=== PATIENT | female | born 1990 | race Hispanic/Latino ===

== ENCOUNTER 2017-11-08 08:53 | Emergency (ER) | payer MEDICAID ==
[2017-11-08 09:46] LABS: APPEARANCE,URINE Clear (CLEAR); BILIRUBIN,URINE Negative (NEGATIVE); COLOR,URINE Yellow (YELLOW); GLUCOSE, URINE (UA) Negative (NEGATIVE); KETONES,URINE Negative (NEGATIVE); LEUKOCYTE ESTERASE ,URINE Negative (NEGATIVE); NITRATE,URINE Negative (NEGATIVE); OCCULT BLOOD,URINE Negative (NEGATIVE); PROTEIN,URINE Negative (NEGATIVE)
[2017-11-08 09:52] LABS: HCG,QUAL RESULT NEGATIVE (NEGATIVE)
[2017-11-08] MEDS ORDERED: IBUPROFEN 800 MG TAB ONE (10:10)
[2017-11-08] MEDS ORDERED: SIMETHICONE 80 MG TAB.CHEW ONE (11:46)
== END 2017-11-08 11:55 | disposition home or self-care (01) ==
LOC: EDH 08:53
DX: R10.2 Pelvic and perineal pain (principal); J45.909 Unspecified asthma, uncomplicated
CPT/HCPCS: 76856; 81003; 81025

== ENCOUNTER 2019-07-23 16:54 | Emergency (ER) | payer MEDICAID ==
[2019-07-23 17:31] LABS: BASOPHILS % (AUTO) 0.3 % (0.0-5.0); EOSINOPHILS % (AUTO) 0.3 % (0.0-8.0); HEMATOCRIT 45.8 % (36-48); LYMPHOCYTES % (AUTO) 11.2 % (21.0-51.0); MEAN CORPUSCULAR HEMOGLOBIN 29.4 pg (27.0-33.0); MEAN CORPUSCULAR HGB CONC 33.4 g/dL (32.0-36.0); NEUTROPHILS % (AUTO) 85.2 % (40.0-77.0); PLATELET COUNT (AUTO) 326 K/uL (130-400); RED BLOOD CELL COUNT(AUTO) 5.21 MIL/uL (4.00-5.50); RED CELL DISTRIBUTION WIDTH 13.1 % (11.0-15.5); WHITE BLOOD COUNT (AUTO) 13.3 K/uL (4.8-10.8)
[2019-07-23] MEDS ORDERED: ASPIRIN 325 MG TABLET ONE (17:38)
[2019-07-23 17:50] LABS: CREATININE 0.8 mg/dL (0.5-1.5)
[2019-07-23 17:54] LABS: ALBUMIN 3.5 g/dL (3.5-5.0); BILIRUBIN,TOTAL 0.3 mg/dL (0.2-1.0); TOTAL PROTEIN, SERUM 8.2 g/dL (6.0-8.3)
[2019-07-23 17:56] LABS: INR 0.93 (0.85-1.15); PROTHROMBIN TIME 9.8 SEC (9.6-11.6)
[2019-07-23] MEDS ORDERED: SODIUM CHLORIDE 0.9% 1000ML 1,000 ML IV ONE (18:47)
[2019-07-23 19:03] LABS: APPEARANCE,URINE Clear (CLEAR); BILIRUBIN,URINE Negative (NEGATIVE); COLOR,URINE Yellow (YELLOW); GLUCOSE, URINE (UA) Negative (NEGATIVE); KETONES,URINE Negative (NEGATIVE); LEUKOCYTE ESTERASE ,URINE Large (NEGATIVE); NITRATE,URINE Negative (NEGATIVE); OCCULT BLOOD,URINE Trace (NEGATIVE); PROTEIN,URINE Negative (NEGATIVE); UROBILINOGEN,URINE 0.2 mg/dL (0.2-1.0)
[2019-07-23 19:09] LABS: HCG,QUAL RESULT NEGATIVE (NEGATIVE)
[2019-07-23 19:12] LABS: AMPHET/METH SCREEN,URINE NEGATIVE (NEGATIVE); BARBITURATE SCREEN, URINE NEGATIVE (NEGATIVE); BENZODIAZEPINES SCREEN,URINE NEGATIVE (NEGATIVE); CANNABINOID SCREEN,URINE NEGATIVE (NEGATIVE); COCAINE SCREEN,URINE NEGATIVE (NEGATIVE); OPIATE SCREEN,URINE NEGATIVE (NEGATIVE); PHENCYCLIDINE SCREEN,URINE NEGATIVE (NEGATIVE)
[2019-07-23 19:17] LABS: BACTERIA,URINE Few /HPF (None Seen)
[2019-07-23 19:18] LABS: SQUAMOUS EPITHELIAL CELL,UR Few /HPF (0-2)
[2019-07-23] MEDS ORDERED: CEFTRIAXONE SODIUM 1 GM ONE (19:59)
[2019-07-23] MEDS ORDERED: ACETAMINOPHEN 325 MG TAB ONE (20:14)
== END 2019-07-23 22:42 | disposition home or self-care (01) ==
LOC: EDH 16:54
DX: R00.0 Tachycardia, unspecified (principal); N30.00 Acute cystitis without hematuria; R00.2 Palpitations; K21.9 Gastro-esophageal reflux disease without esophagitis; F41.9 Anxiety disorder, unspecified; Z88.6 Allergy status to analgesic agent
CPT/HCPCS: 36415; 71045; 80053; 80305; 81001; 81025; 82550; 84443; 84484; 85025; 85378; 85610; 85730; 87804 ×2; 93005; 96374; 99285; J0696; J7030

== ENCOUNTER → 2019-09-27 | Outpatient (CLI) | payer OTHER | END | disposition home or self-care (01) | LOC: OIH 13:21 | PROVIDERS: ATTEND Internal Medicine Cardiovascular Disease | DX: Z13.6 Encounter for screening for cardiovascular disorders (principal) | CPT/HCPCS: 75571 ==

== ENCOUNTER → 2019-10-08 | Outpatient (CLI) | payer MEDICAID | END | disposition home or self-care (01) | LOC: SHCH 08:29 | PROVIDERS: ATTEND Internal Medicine Cardiovascular Disease | DX: R00.2 Palpitations (principal) | CPT/HCPCS: 93306; 93356 ==

== ENCOUNTER 2021-03-03 01:20 | Emergency (ER) | payer MEDICAID ==
[~2021-03-03] VITALS: Ht 165.1 cm; Wt 88.9 kg
[2021-03-03 01:41] VITALS: BP 119/67
[2021-03-03 03:27] VITALS: BP 127/86
[2021-03-03 03:50] LABS: HEMATOCRIT 46.8 % (36-48); MEAN CORPUSCULAR HEMOGLOBIN 28.3 pg (27.0-33.0); MEAN CORPUSCULAR HGB CONC 32.7 g/dL (32.0-36.0); MEAN CORPUSCULAR VOLUME 86.7 fL (79-99); PLATELET COUNT (AUTO) 283 K/uL (130-400); RED CELL DISTRIBUTION WIDTH 18.4 % (11.0-15.5); WHITE BLOOD COUNT (AUTO) 10.8 K/uL (4.8-10.8)
[2021-03-03 04:01] LABS: APPEARANCE,URINE Clear (CLEAR); BILIRUBIN,URINE Negative (NEGATIVE); COLOR,URINE Yellow (YELLOW); GLUCOSE, URINE (UA) Negative (NEGATIVE); KETONES,URINE Negative (NEGATIVE); LEUKOCYTE ESTERASE ,URINE Negative (NEGATIVE); NITRATE,URINE Negative (NEGATIVE); OCCULT BLOOD,URINE Negative (NEGATIVE); PH,URINE 6.5 (5.0-8.0); PROTEIN,URINE Negative (NEGATIVE); UROBILINOGEN,URINE 0.2 mg/dL (0.2-1.0)
[2021-03-03 04:03] LABS: HCG,QUAL RESULT NEGATIVE (NEGATIVE)
== END 2021-03-03 04:13 | disposition home or self-care (01) ==
LOC: EDH 02:02
DX: R00.2 Palpitations (principal); R00.0 Tachycardia, unspecified; F41.9 Anxiety disorder, unspecified; J45.909 Unspecified asthma, uncomplicated
CPT/HCPCS: 36415; 81003; 81025; 84484; 85027; 93005

== ENCOUNTER 2021-09-26 15:22 | Emergency (ER) | payer MEDICAID ==
[~2021-09-26] VITALS: Ht 160 cm; Wt 87.1 kg
[2021-09-26 16:11] LABS: BASOPHILS % (AUTO) 0.4 % (0.0-5.0); EOSINOPHILS % (AUTO) 1.8 % (0.0-8.0); HEMATOCRIT 47.6 % (36-48); LYMPHOCYTES % (AUTO) 23.4 % (21.0-51.0); MEAN CORPUSCULAR HGB CONC 32.8 g/dL (32.0-36.0); MEAN CORPUSCULAR VOLUME 88.5 fL (79-99); MONOCYTES % (AUTO) 6.3 % (3.0-13.0); NEUTROPHILS % (AUTO) 67.4 % (40.0-77.0); PLATELET COUNT (AUTO) 307 K/uL (130-400); RED BLOOD CELL COUNT(AUTO) 5.38 MIL/uL (4.00-5.50); RED CELL DISTRIBUTION WIDTH 12.1 % (11.0-15.5)
[2021-09-26 16:12] LABS: APPEARANCE,URINE Clear (CLEAR); BILIRUBIN,URINE Negative (NEGATIVE); COLOR,URINE Yellow (YELLOW); GLUCOSE, URINE (UA) Negative (NEGATIVE); KETONES,URINE Negative (NEGATIVE); LEUKOCYTE ESTERASE ,URINE Small (NEGATIVE); NITRATE,URINE Negative (NEGATIVE); OCCULT BLOOD,URINE Trace (NEGATIVE); PH,URINE 5.5 (5.0-8.0); PROTEIN,URINE Negative (NEGATIVE)
[2021-09-26 16:20] LABS: HCG,QUAL RESULT NEGATIVE (NEGATIVE)
[2021-09-26 16:21] LABS: AMPHET/METH SCREEN,URINE NEGATIVE (NEGATIVE); BARBITURATE SCREEN, URINE NEGATIVE (NEGATIVE); BENZODIAZEPINES SCREEN,URINE NEGATIVE (NEGATIVE); CANNABINOID SCREEN,URINE NEGATIVE (NEGATIVE); COCAINE SCREEN,URINE NEGATIVE (NEGATIVE); OPIATE SCREEN,URINE NEGATIVE (NEGATIVE); PHENCYCLIDINE SCREEN,URINE NEGATIVE (NEGATIVE)
[2021-09-26 16:24] LABS: CREATININE 0.7 mg/dL (0.5-1.5); POTASSIUM 4.2 mmol/L (3.5-5.1)
[2021-09-26 16:34] LABS: ALBUMIN 3.9 g/dL (3.5-5.0); BILIRUBIN,TOTAL 0.2 mg/dL (0.2-1.0); TOTAL PROTEIN, SERUM 8.6 g/dL (6.0-8.3)
[2021-09-26 16:43] LABS: B-TYPE NATRIURETIC PEPTIDE 16 pg/mL (0-100)
[2021-09-26 16:50] LABS: SQUAMOUS EPITHELIAL CELL,UR Few /HPF (0-2)
[2021-09-26 16:51] LABS: BACTERIA,URINE Few /HPF (None Seen); MUCUS,URINE Few LPF (None Seen)
[2021-09-26] MEDS ORDERED: HYDR-3421 PO (16:59)
[2021-09-26] MEDS ORDERED: HYDROXYZINE 25 MG TABLET PO ONE (17:00)
[2021-09-26 17:19] VITALS: BP 114/75
== END 2021-09-26 17:20 | disposition home or self-care (01) ==
LOC: EDH 15:22
DX: R00.0 Tachycardia, unspecified (principal); R00.2 Palpitations; F41.9 Anxiety disorder, unspecified; J45.909 Unspecified asthma, uncomplicated
CPT/HCPCS: 36415; 71045; 80053; 80305; 81001; 81025; 82550; 83880; 84484; 85025; 93005

== ENCOUNTER 2023-02-17 01:14 | Emergency (ER) | payer MEDICAID ==
[~2023-02-17] VITALS: Ht 160 cm; Wt 88.9 kg
[~2023-02-17 01:14] MED LIST: HYDR-3421 PO
[2023-02-17] MEDS ORDERED: LACTATED RINGERS 1000ML 1,000 ML IV ONE (01:30)
[2023-02-17] MEDS ORDERED: ONDANSETRON 4MG INJ IVP ONE (01:30)
[2023-02-17] MEDS ORDERED: MORPHINE 4 MG SYG IVP ONE (02:00)
[2023-02-17 02:22] LABS: BASOPHILS % (AUTO) 0.4 % (0.0-5.0); EOSINOPHILS % (AUTO) 3.1 % (0.0-8.0); HEMATOCRIT 44.2 % (36-48); LYMPHOCYTES % (AUTO) 34.8 % (21.0-51.0); MEAN CORPUSCULAR HEMOGLOBIN 28.4 pg (27.0-33.0); MEAN CORPUSCULAR HGB CONC 32.8 g/dL (32.0-36.0); MEAN CORPUSCULAR VOLUME 86.7 fL (79-99); MONOCYTES % (AUTO) 7.9 % (3.0-13.0); NEUTROPHILS % (AUTO) 52.7 % (40.0-77.0); PLATELET COUNT (AUTO) 287 K/uL (130-400); RED CELL DISTRIBUTION WIDTH 12.8 % (11.0-15.5); WHITE BLOOD COUNT (AUTO) 14.4 K/uL (4.8-10.8)
[2023-02-17 02:35] LABS: CREATININE 0.7 mg/dL (0.5-1.5); POTASSIUM 3.9 mmol/L (3.5-5.1)
[2023-02-17 02:39] LABS: ALBUMIN 3.5 g/dL (3.5-5.0); TOTAL PROTEIN, SERUM 7.6 g/dL (6.0-8.3)
[2023-02-17 03:51] LABS: APPEARANCE,URINE CLOUDY (CLEAR); BILIRUBIN,URINE NEGATIVE (NEGATIVE); COLOR,URINE LIGHT-YELLOW (YELLOW); GLUCOSE, URINE (UA) NEGATIVE (NEGATIVE); KETONES,URINE NEGATIVE (NEGATIVE); LEUKOCYTE ESTERASE ,URINE 250 Leu/uL (NEGATIVE); NITRATE,URINE NEGATIVE (NEGATIVE); OCCULT BLOOD,URINE NEGATIVE (NEGATIVE); PROTEIN,URINE NEGATIVE (NEGATIVE); UROBILINOGEN,URINE 0.2 mg/dL (0.2-1.0)
[2023-02-17 03:53] LABS: HCG,QUALITATIVE URINE NEGATIVE (NEGATIVE)
[2023-02-17 03:58] LABS: MUCUS,URINE MANY LPF (None Seen); SQUAMOUS EPITHELIAL CELL,UR FEW /HPF (0-2)
[2023-02-17 04:50] VITALS: BP 124/65
== END 2023-02-17 05:11 | disposition home or self-care (01) ==
LOC: EDH 01:14
DX: K80.50 Calculus of bile duct without cholangitis or cholecystitis without obstruction (principal); K80.20 Calculus of gallbladder without cholecystitis without obstruction; E66.9 Obesity, unspecified; F41.9 Anxiety disorder, unspecified; Z68.34 Body mass index [BMI] 34.0-34.9, adult
CPT/HCPCS: 99285; 96374; 76705; 96361; 96375; 84484; 80053; 83690; 85025; 87088; 81001; 81025; 36415; 93005; J7120; J2405; J2270

== ENCOUNTER 2023-08-10 09:59 | Emergency (ER) | payer MEDICAID ==
[~2023-08-10] VITALS: Ht 162.6 cm; Wt 83.9 kg
[2023-08-10 11:19] LABS: APPEARANCE,URINE CLEAR (CLEAR); BILIRUBIN,URINE NEGATIVE (NEGATIVE); COLOR,URINE LIGHT-YELLOW (YELLOW); GLUCOSE, URINE (UA) NEGATIVE (NEGATIVE); KETONES,URINE NEGATIVE (NEGATIVE); LEUKOCYTE ESTERASE ,URINE 25 Leu/uL (NEGATIVE); NITRATE,URINE NEGATIVE (NEGATIVE); OCCULT BLOOD,URINE NEGATIVE (NEGATIVE); PH,URINE 6.5 (5.0-8.0); PROTEIN,URINE NEGATIVE (NEGATIVE); UROBILINOGEN,URINE 0.2 mg/dL (0.2-1.0)
[2023-08-10 11:34] LABS: ADD UA MICROSCOPIC YES
[2023-08-10 11:42] LABS: BASOPHILS # (AUTO) 0.03 K/uL (0.00-0.20); BASOPHILS % (AUTO) 0.2 % (0.0-5.0); EOSINOPHILS # (AUTO) 0.21 K/uL (0.00-0.70); EOSINOPHILS % (AUTO) 1.6 % (0.0-8.0); HEMATOCRIT 49.6 % (36-48); IMMATURE GRANULOCYTE ABSOLUTE 0.06 K/uL (0-1); LYMPHOCYTES % (AUTO) 7.4 % (21.0-51.0); MEAN CORPUSCULAR HEMOGLOBIN 28.9 pg (27.0-33.0); MEAN CORPUSCULAR HGB CONC 32.9 g/dL (32.0-36.0); MEAN CORPUSCULAR VOLUME 87.9 fL (79-99); MONOCYTES # (AUTO) 0.7 K/uL (0.1-1.0); MONOCYTES % (AUTO) 4.9 % (3.0-13.0); NEUTROPHILS # (AUTO) 11.3 K/uL (1.8-7.7); NEUTROPHILS % (AUTO) 85.4 % (40.0-77.0); PLATELET COUNT (AUTO) 299 K/uL (130-400); RED BLOOD CELL COUNT(AUTO) 5.64 MIL/uL (4.00-5.50); RED CELL DISTRIBUTION WIDTH 12.2 % (11.0-15.5); WHITE BLOOD COUNT (AUTO) 13.2 K/uL (4.8-10.8)
[2023-08-10 11:46] LABS: MUCUS,URINE RARE LPF (None Seen); SQUAMOUS EPITHELIAL CELL,UR FEW /HPF (0-2)
[2023-08-10 11:50] LABS: CREATININE 0.7 mg/dL (0.5-1.5); POTASSIUM 4.3 mmol/L (3.5-5.1)
[2023-08-10 11:54] LABS: ALBUMIN 3.6 g/dL (3.5-5.0); BILIRUBIN,TOTAL 0.6 mg/dL (0.2-1.0); TOTAL PROTEIN, SERUM 8.6 g/dL (6.0-8.3)
[2023-08-10 11:59] LABS: HCG,QUALITATIVE URINE NEGATIVE (NEGATIVE)
[2023-08-10] MEDS ORDERED: ACETAMINOPHEN 500 MG TABLET PO ONE (14:00)
[2023-08-10] MEDS ORDERED: CEFTRIAXONE 500MG VIAL IM ONE (14:30)
[2023-08-10] MEDS ORDERED: METR-172 PO (14:31)
[2023-08-10] MEDS ORDERED: DOXY-252 PO (14:31)
[2023-08-10] MEDS ORDERED: ACET-66 PO (14:33)
[2023-08-10 15:18] VITALS: BP 129/76; PULSE 88; RESP 14; O2SAT 98
== END 2023-08-10 15:25 | disposition home or self-care (01) ==
LOC: EDH 09:59
DX: N73.9 Female pelvic inflammatory disease, unspecified (principal); R10.2 Pelvic and perineal pain; F41.9 Anxiety disorder, unspecified; Z79.899 Other long term (current) drug therapy; Z90.49 Acquired absence of other specified parts of digestive tract; Z98.890 Other specified postprocedural states; Z88.5 Allergy status to narcotic agent
CPT/HCPCS: 99285; 76856; 80053; 85025; 87210; 87797; 87486; 81001; 81025; 36415; 96372; J0696

== ENCOUNTER 2025-06-24 15:04 | Emergency (ER) | payer MEDICAID ==
[~2025-06-24] VITALS: Ht 157.5 cm; Wt 88.5 kg
[~2025-06-24 15:04] MED LIST changes: +ACET-66 PO; +DOXY-252 PO; +METR-172 PO
[2025-06-24 15:57] VITALS: BP 112/73; PULSE 93; RESP 17; TEMP 98.9; O2SAT 97
[2025-06-24] MEDS: HYDROcodone/APAP 5/325 1 TAB TABLET PO SCH (18:05)
--- NOTE | 2025-06-24 18:21 | ERN ---
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 She reports a hearing a popping sound at the time of injury and has since developed persistent pain and contraction of the 1st, 2nd, and 3rd digits of the right hand. She was initially evaluated at an urgent care clinic where an x-ray of the shoulder was performed and read as normal. Despite conservative management her symptoms have persisted. Allergies: Coded Allergies: aspirin (Unverified Allergy, Unknown, 08/10/23) Home Meds Active Scripts Acetaminophen (Acetaminophen) 500 Mg Tablet, 1000 MG PO Q6HPRN PRN for PAIN, #30 TAB Prov:HECTOR CAMPBELL MD 08/10/23 Metronidazole (Metronidazole) 500 Mg Tablet, 500 MG PO BID for 14 Days, #28 TAB Prov:HECTOR CAMPBELL MD 08/10/23 Doxycycline Hyclate (Doxycycline Hyclate) 100 Mg Tablet.dr, 100 MG PO BID for 14 Days, #28 TAB Prov:HECTOR CAMPBELL MD 08/10/23 Hydroxyzine HCl (Hydroxyzine HCl) 25 Mg Tablet, 25 MG PO TID, #45 TAB Prov:NAVID MIJARES 09/26/21 Past Medical History Past Medical History: Anxiety, Arrythmia Medical History Other: TACHYCARDIA Past Surgical History: Cholecystectomy ROS Dictation CONSTITUTIONAL: Negative except for HPI HEAD/FACE: Negative except for HPI EENT: Negative except for HPI RESPIRATORY: Negative except for HPI GASTROINTESTINAL/ABDOMINAL: Negative except for HPI GENITOURINARY: Negative except for HPI MUSCULOSKELETAL: Negative except for HPI INTEGUMENTARY: Negative except for HPI NEUROLOGICAL/PSYCH: Negative except for HPI HEMATOLOGIC/LYMPHATIC: Negative except for HPI All Systems Negative, Except as noted above. 13 point review of systems assessed and all negative except for above. Physical Exam Physical Exam Dictation Vital Signs reviewed General Appearance: Alert, oriented x 3, no acute distress, well developed, nourished. Head and Face: non-traumatic. Eyes: PERRL, pink conjunctivas, eyelid no trauma, anterior chamber with arcus senilis. Ears: Pinnas intact and no signs of trauma or erythema ear canals clear and no discharge TM no erythema Nose: No discharge, no bleeding. Oropharynx: Mouth normal, tongue pink, pharynx clear,no erythema, tonsils no exudates, no abscesses noted, mucous membrane moist Neck: Supple, non-tender, no thyromegaly, no masses, no JVD, no bruits Breast:Deferred Chest:No tenderness, no crepitus, no paradoxical movement, no retractions Lungs:Clear, well-ventilated, symmetric, no rales, no wheezing, no rhonchi, no stridor, good breath sounds bilaterally Heart: Regular rate, regular rhythm, no murmur, no gallops Vascular: no peripheral edema, Abdomen: Soft, positive bowel sounds, nondistended, no guarding, nontender, no rebound, no masses no hepatomegaly, no splenomegaly, no Vasquez's sign, no hernias. Rectal: Deferred Genital: Deferred Neurological: Normal speech, motor function intact, sensory function intact Musculoskeletal: Neck nontender, full range of motion, back nontender, full range of motion, Extremities: nontender, full range of motion Skin: Color pink, dry, no turgor, no rash, no lacerations, no abrasions, no contusions. 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 She reports a hearing a popping sound at the time of injury and has since developed persistent pain and contraction of the 1st, 2nd, and 3rd digits of the right hand. She was initially evaluated at an urgent care clinic where an x-ray of the shoulder was performed and read as normal. Despite conservative management her symptoms have persisted. Today, repeat x-rays of the right shoulder and right elbow were performed and again show no acute fracture or dislocation. Given ongoing pain functional limitation in you onset of digital contraction a musculoskeletal injury is suspected. There was no evidence of an acute bony injury. The patient was placed in his sling for comfort and provided pain management. She was advised strict activity restriction and will be excused from work for seven days due to inability to effectively use her dominant arm. She will require outpatient follow up with orthopedics for further evaluation and possibl e MRI of the shoulder and/or cervical spine if symptoms persist. Differential diagnosis: Rotator cuff injury, fracture, contusion There are no social concerns with this patient. Prescription drug management Prescriptions will include: Toradol Medical management and examination interpretation discussions were had by me with other qualified healthcare professionals as indicated for the patient's care. ED Course Orders Procedure Category Date Status Time Hydrocodone/Apap PHA 06/24/25 In Process 5/325 ([place] 5/325mg) 17:00 Sling GUANACO 06/24/25 In Process 16:57 Shoulder Comp 2+Vws Rt RAD 06/24/25 Taken 16:57 Elbow Comp 3+Vws Rt RAD 06/24/25 Taken 16:57 Current Medications Medications (Trade) Dose Ordered Sig/Joshua Route PRN Reason Start Time Stop Time Status Last Admin Dose Admin Acetaminophen/ Hydrocodone Bitart ([place] 5/325MG) 1 tab ONCE PO 06/24/25 17:00 06/24/25 21:30 06/24/25 18:05 Vital Signs Date Time Temp Pulse Resp B/P (MAP) Pulse Ox O2 Delivery O2 Flow Rate FiO2 06/24/25 15:57 99.0 93 17 112/73 97 Room Air* 0 21 06/24/25 15:07 98.4 95 20 115/74 98 Room Air 0 DX & DISP Disposition: Discharge Departure Impression: Primary Impression: Right shoulder strain Condition: Stable Additional Instructions: Lo revisaron hoy por dolor persistente en el hombro y brazo derechos tras liset lesin laboral. [place] radiografas de hoy no muestran fracturas ni dislocaciones. El dolor y la rigidez que experimenta pueden deberse a liset distensin muscular, liset lesin tendinosa o liset irritacin nerviosa. Mantenga el brazo derecho en cabestrillo para mayor comodidad y apoyo. Evite levantar, jalar o empujar con el brazo derecho. Necesitar liset inderjit de seguimiento con un cirujano ortopdico para liset evaluacin adicional. No regrese al trabajo hasta que keller mdico lo reevale. [employer]: El paciente debe ausentarse del trabajo antonieta 10 mcclure debido a liset lesin en la extremidad superior derecha y limitacin funcional. You were seen today for continued pain in your right shoulder and arm following a work-related injury. Your x-rays today do not show any broken bones or dislocation. The pain and tightness your experiencing may be due to muscle strain, tendon injury, or nerve irritation. Keep your right arm in the sling for comfort and support. Avoid lifting, pulling, or pushing with your right arm. You will need to follow up with an orthopedic surgeon for further evaluation. Do not return to work until re-evaluated by your provider. WORK EXCUSE: Patient is to remain off work for 10 days due to right upper extremity injury and functional limitation. Referrals: TATIANA CANTOR MD (PCP) RODNEY ROBERTS MD I have reviewed the case, and I agree with, Diagnosis and Plan I performed the substantive portion of the visit. I have reviewed and personally made and approve the management plan that is documented in the note by myself or the MARCIA. I acknowledge for responsibility for the patient's management plan. ELVI MONTGOMERY [facility] Jun 24, 2025 18:20
--- NOTE | 2025-06-25 10:14 | HMCIMG ---
ELBOW COMP 3+VWS RT REASON: r/o fx TECHNIQUE: 3 views were obtained. FINDINGS: There is no evidence of fracture or dislocation. There is no joint effusion. The soft tissues appear unremarkable. There is no evidence of a radiopaque foreign body. IMPRESSION: No acute findings.
--- NOTE | 2025-06-25 10:14 | HMCIMG ---
SHOULDER COMP 2+VWS RT REASON: r/o fx TECHNIQUE: 2 views were obtained. FINDINGS: There is no evidence of fracture or dislocation. There is no joint effusion. The soft tissues appear unremarkable. There is no evidence of a radiopaque foreign body. IMPRESSION: No acute findings.
== END 2025-06-24 18:37 | disposition home or self-care (01) ==
LOC: EDH 15:04
DX: S46.911A Strain of unspecified muscle, fascia and tendon at shoulder and upper arm level, right arm, initial encounter (principal); F41.9 Anxiety disorder, unspecified; Z90.49 Acquired absence of other specified parts of digestive tract; Z88.6 Allergy status to analgesic agent; Z79.899 Other long term (current) drug therapy; X50.9XXA Other and unspecified overexertion or strenuous movements or postures, initial encounter; Y93.89 Activity, other specified; Y92.89 Other specified places as the place of occurrence of the external cause; Y99.0 Civilian activity done for income or pay
CPT/HCPCS: 73030; 73080; 99284